=== PATIENT | female | born 1935 | race Caucasian/White ===

== ENCOUNTER 2016-07-14 01:50 | Emergency (ER) | payer OTHER ==
[~2016-07-14] VITALS: Ht 152.4 cm; Wt 53.0 kg
[~2016-07-14 01:50] MED LIST: OMEPRAZOLE; ONDA4TAB14 PO
[2016-07-14 01:54] VITALS: Ht 152.4 cm; Wt 53.0 kg
[2016-07-14 05:44] LABS: ADD SCAN DIFF NO
[2016-07-14 05:55] LABS: HEMATOCRIT 38.4 % (37.0-47.0); MEAN CORPUSCULAR HEMOGLOBIN 32.4 pg (29.0-33.0); MEAN CORPUSCULAR HGB CONC 33.9 g/dl (32.0-37.0); MEAN CORPUSCULAR VOLUME 95.8 fl (82.0-101.0); MEAN PLATELET VOLUME 10.4 fl (7.4-10.4); PLATELET COUNT 126 10^3/UL (140-415); RED BLOOD COUNT 4.01 10^6/ul (4.20-5.40); RED CELL DISTRIBUTION WIDTH 12.6 % (11.5-14.5); WHITE BLOOD COUNT 5.6 10^3/ul (4.8-10.8)
[2016-07-14 06:03] LABS: ALBUMIN 3.5 g/dl (3.3-4.9)
[2016-07-14 06:04] LABS: POTASSIUM 3.8 mmol/L (3.5-5.1)
[2016-07-14 06:05] LABS: CREATININE 0.64 mg/dl (0.44-1.00)
[2016-07-14 06:06] LABS: ALBUMIN/GLOBULIN RATIO 1.09; BILIRUBIN,INDIRECT 0.5 mg/dl (0-1.1); BILIRUBIN,TOTAL 0.5 mg/dl (0.2-1.3); CALCIUM 8.3 mg/dl (8.4-10.2); TOTAL PROTEIN 6.7 g/dl (6.1-8.1)
[2016-07-14 06:07] LABS: ADD UMIC YES; URINE BILIRUBIN (Dip) NEGATIVE (NEGATIVE); URINE BLOOD (Dip) 2+ (NEGATIVE); URINE COLOR LT. YELLOW (YELLOW); URINE GLUCOSE (Dip) NEGATIVE (NEGATIVE); URINE KETONES (Dip) NEGATIVE (NEGATIVE); URINE LEUKOCYTE ESTERASE (Dip) 1+ (NEGATIVE); URINE NITRITE (Dip) NEGATIVE (NEGATIVE); URINE TOTAL PROTEIN (Dip) NEGATIVE (NEGATIVE); URINE UROBILINOGEN (Dip) 0.2 E.U./dL (0.1-1.0)
[2016-07-14] MEDS ORDERED: SOD CHLORIDE 0.9% 1,000 ML IV STA (06:22)
[2016-07-14] MEDS ORDERED: morphine 4 MG/ML VIAL IV STA (06:22)
[2016-07-14] MEDS ORDERED: morphine 2 MG INJ IV STA (06:22)
--- NOTE | 2016-07-14 06:25 | ERD ---
ER Documentation Chief Complaint Date/Time DATE: 07/14/16 TIME: 06:24 Chief Complaint RLQ abd pain,diarrhea,NV HPI 80-year-old female with a history of gastritis, status post remote cholecystectomy and appendectomy presents the ED complaining of 3 day history of nausea with multiple episodes of nonbloody nonbilious emesis, profuse, watery , nonbloody, nonmucoid diarrhea and generalized, moderate, nonradiating abdominal pain which localizes across the lower abdomen to the right greater than left lower quadrant. No recent travel, ill contacts or spoiled food exposure. Denies dysuria, polyuria hematuria. Seen by her primary care physician and treated with loperamide and prochlorperazine. Diarrhea has improved but still with ongoing pain, nausea and vomiting. No chest pain or palpitations. Denies shortness of breath or cough. No other relieving or exacerbating factors. No URI symptoms or rhinorrhea. No skin rash. No fevers or chills. ROS All systems reviewed and are negative except as per history of present illness. Medications Home Meds Active Scripts Ondansetron (Ondansetron Odt) 4 Mg Tab.rapdis, 4 MG PO Q6H Y for NAUSEA AND/OR VOMITING, #10 TAB Prov:RENETTA GAYLE DO 12/05/15 Reported Medications [Omeprazole] No Conflict Check 01/29/14 Allergies Allergies: Coded Allergies: No Known Allergies (Verified Allergy, Unknown, 12/05/15) PMhx/Soc Reviewed in chart. As per HPI. History of Surgery: Yes (CHOLECYSTECTOMY, APPENDECTOMY, ) Anesthesia Reaction: No Hx Neurological Disorder: No Hx Respiratory Disorders: No Hx Cardiac Disorders: No Hx Psychiatric Problems: No Hx Miscellaneous Medical Probl: Yes (gastritis, colitis) Hx Alcohol Use: No Hx Substance Use: No Hx Tobacco Use: No Smoking Status: Never smoker FmHx No stroke or cancer Physical Exam Vitals Vital Signs Date Time Temp Pulse Resp B/P Pulse Ox O2 Delivery O2 Flow Rate FiO2 07/14/16 01:54 97.5 75 16 114/68 98 Physical Exam Const: [] Head: Atraumatic Eyes: Normal Conjunctiva ENT: Normal External Ears, Nose and Mouth. Neck: Full range of motion..~ No meningismus. Resp: Clear to auscultation bilaterally Cardio: Regular rate and rhythm, no murmurs Abd: Soft, non tender, non distended. Normal bowel sounds Skin: No petechiae or rashes Back: No midline or flank tenderness Ext: No cyanosis, or edema Neur: Awake and alert Psych: Normal Mood and Affect Result Diagram: 07/14/16 0515 Results 24 hrs Laboratory Tests Test 07/14/16 05:15 White Blood Count 5.610^3/ul Red Blood Count 4.0110^6/ul Hemoglobin 13.0g/dl Hematocrit 38.4% Mean Corpuscular Volume 95.8fl Mean Corpuscular Hemoglobin 32.4pg Mean Corpuscular Hemoglobin Concent 33.9g/dl Red Cell Distribution Width 12.6% Platelet Count 34511^3/UL Mean Platelet Volume 10.4fl Neutrophils % % Lymphocytes % % Monocytes % % Neutrophils # 10^3/ul Lymphocytes # 10^3/ul Monocytes # 10^3/ul Current Medications Medications (Trade) Dose Ordered Sig/Maureen Route PRN Reason Start Time Stop Time Status Last Admin Dose Admin Sodium Chloride (NS) 1,000 ml @ 1,000 mls/hr Q1H STAT IV 07/14/16 06:22 07/14/16 07:21 Morphine Sulfate (morphine) 2 mg ONCE STAT IV 07/14/16 06:22 07/14/16 06:23 DC Morphine Sulfate (morphine) 4 mg ONCE STAT IV 07/14/16 06:22 07/14/16 06:23 DC IMAGING: Procedures/MDM DOCUMENTS REVIEWED: ED nurse, prior ED, prior records. Patient was seen in the ED 11/2015 for similar symptoms, CT was negative for acute process. ED COURSE: IV saline lock. Morphine 2 mg/Zofran 4 mg. Normal saline 1 L. REEXAMINATION/REEVALUATION: Time: 07:33. Doing well. Pain decrease. Abdomen soft nontender. No nausea, vomiting or diarrhea. MEDICAL DECISION MAKIN-year-old female with a history of gastritis, status post remote cholecystectomy and appendectomy presents the ED complaining of 3 day history of nausea with multiple episodes of nonbloody nonbilious emesis , profuse, watery, nonbloody, non-mucoid diarrhea and generalized, moderate, nonradiating abdominal pain which localizes across the lower abdomen to the right greater than left lower quadrant. No CT evidence of an acute intra- abdominal process including but not limited to diverticulitis, bowel obstruction , mesenteric ischemia, abdominal aortic aneurysm or obstructive uropathy. No urinary tract infection or pyelonephritis. No fever or criteria for systemic inflammatory response syndrome or sepsis. Abdominal exam is benign without rebound, guarding or other signs of peritonitis. Presentation likely secondary to gastroenteritis/colitis. Stable for discharge precautionary instructions and outpatient follow-up as counseled. Counseled patient and sister regarding diagnostic workup, diagnosis and need for followup. Understands to return to ED if symptoms recur, worsen or any other concerns. HILLARY CONNER MD July 14, 2016 06:25
[2016-07-14 06:32] LABS: BACTERIA,URINE OCCASIONAL; SQUAMOUS EPITHELIAL CELL,UR FEW
[2016-07-14] MEDS ORDERED: ONDANSETRON 4 MG INJ ONE (06:52)
[2016-07-14] MEDS ORDERED: ONDANSETRON 4 MG INJ IV ONE (06:59)
[2016-07-14] MEDS ORDERED: SOD CHLORIDE 0.9% 100 ML ONE (07:07)
[2016-07-14] MEDS ORDERED: IODIXANOL LOCM 100 ML BTL ONE (07:07)
--- NOTE | 2016-07-14 07:44 | RADRPT ---
PROCEDURE: CT Abdomen and Pelvis with contrast. CLINICAL INDICATION: Abdomen and pelvis pain. TECHNIQUE: CT scan of the abdomen and pelvis with contrast was performed. The patient was scanned following the uncomplicated intravenous administration of 80 cc of Visipaque 320. Coronal and sagit wayne reformatted images were obtained from the axial source images. Images were reviewed on a [employer] PACS workstation. Total exam DLP is 344.71 mGy-cm. CTDIvol is 6.68 mGy. One or more of t he following dose reduction techniques were used: Automated exposure control, adjustment of the mA a nd/or kV according to patient size, use of iterative reconstruction technique. COMPARISON: CT scan of the abdomen and pelvis dated 12/05/2015 FINDINGS: The lung bases are normal. There is no pleural effusion or pericardial effusion. The heart size is normal. There is calcification of the mitral valve annulus. The liver is normal in size and attenuation. There is no focal hepatic lesion. The gallbladder is surgically absent with clips noted in the gallbladder bed. There is mild diffuse biliary dilatation. No obstructing lesion is visualized. The spleen is normal in size. There is no focal splenic lesion. Both adrenals are normal with no enlargement or mass. The pancreas is unremarkable with no mass or evidence of pancreatitis. Both kidneys demonstrate normal contrast enhancement. There is no renal mass or hydronephrosis. The abdominal aorta is not dilated. There is calcification in the aorta consistent with atheroscler osis. There is no retroperitoneal lymphadenopathy or mass. There is no pelvic lymphadenopathy or mass. The bladder and distal ureters are normal. The periappendiceal region is unremarkable with no evidence of appendicitis. The bowel and mesentery are normal. There is no free fluid or free gas. There are degenerative changes of the spine. There is no fracture or lytic lesion there is mild lum bar scoliosis convex left. IMPRESSION: 1. Calcification of the mitral valve annulus. 2. Status post cholecystectomy. 3. Mild diffuse biliary dilatation with no obstructing lesion visualized. Clinical correlation adv ised. 4. Atherosclerosis. 5. Degenerative changes of the spine. 6. Mild lumbar scoliosis convex left. 7. Otherwise unremarkable study. RPTAT: QQ .Sharan Menezes MD, MD Date Time Electronically viewed and signed by .Sharan Menezes MD, MD on 07/14/2016 07:44 .R/
[2016-07-14] MEDS ORDERED: CIPR500T4 PO (08:09)
[2016-07-14] MEDS ORDERED: TRAM50TA2 PO (08:09)
[2016-07-14] MEDS ORDERED: ONDA4TAB14 PO (08:09)
[2016-07-14 08:47] VITALS: BP 101/55; PULSE 67; RESP 18; TEMP 96.8
[2016-07-14 10:08] LABS: EOSINOPHILS # 0.1 10^3/ul (0.0-0.5); LYMPHOCYTES # 1.9 10^3/ul (0.8-2.9); MONOCYTE # 0.3 10^3/ul (0.3-0.9); NEUTROPHIL # 2.8 10^3/ul (1.6-7.5)
== END 2016-07-14 08:48 | disposition home or self-care (01) ==
LOC: E/R 01:50
DX: R10.31 Right lower quadrant pain (principal); R40.2252 Coma scale, best verbal response, oriented, at arrival to emergency department; R11.2 Nausea with vomiting, unspecified; R19.7 Diarrhea, unspecified; R40.2142 Coma scale, eyes open, spontaneous, at arrival to emergency department; R40.2362 Coma scale, best motor response, obeys commands, at arrival to emergency department; Z90.49 Acquired absence of other specified parts of digestive tract
CPT/HCPCS: 36415; 74177; 80053; 81001; 81003; 83690; 85025; 96374; 96375; J2270; J2405; J7030; Q9967; Z7502; Z7610